=== PATIENT | female | born 1995 | race Caucasian/White ===

== ENCOUNTER → 2018-09-30 | Outpatient (CLI) | payer MEDICAID | LOC: FIMAGING 12:07 | PROVIDERS: ATTEND Family Medicine | DX: N63.22 Unspecified lump in the left breast, upper inner quadrant (principal); N64.4 Mastodynia ==

== ENCOUNTER → 2019-04-27 | Outpatient (CLI) | payer MEDICAID | LOC: FIMAGING 10:04 ==